=== PATIENT | male | born 1965 | race Caucasian/White ===

== ENCOUNTER 2022-07-24 15:54 | Outpatient (CLI) | payer BC ==
--- NOTE | 2022-07-24 16:22 | SLEEP CARE CONSULTATION ---
Information from patient questionnaire entered by Isa Bennett. I have reviewed and concur with the information entered by Isa Bennett. This document represents the service I personally performed and the decisions made by me, Olga Linares ARNP. History of Present Illness Service Date and Time: 07/24/2022 1554 Reason for Visit: New patient Chief Complaint: reports: Unrefreshed sleep, Frequent awakenings at night Date of Onset: 5YRS Usual bedtime: 9:30 PM Time it takes to fall asleep: 10MIN Snores at night: Yes Observed to quit breathing while asleep: No Sleeps alone due to snoring: No Number of times waking at night: 2 Reasons for waking at night: reports: Bathroom. denies: Choking, Snoring, Gasping for air Toss, Turn, or Twitch while sleeping: No Recalls having dreams: Yes Usually gets out of bed at: 4-5AM Feels refreshed in the morning: No Morning headache: Yes (WITH IN AN HR) Sleepy or fatigued during the day: Yes Ever fallen asleep while driving: No Takes day naps: No Dreams during day naps: No Prior sleep studies: No Additional HPI information: I had the pleasure of seeing BRIGHT BUTTS today regarding the possibility of him having a sleep disorder. His current complaints are unrefreshed sleep and frequent night awakenings. He states his sleep was bad where he would wake up frequently at night and then waking up early and not going back to sleep. He states he does not feel rested usually when waking up. He states lately improved over last 2-3 months because he cut down on caffeine and alcohol. He has been told that he snores. - Parasomnia Symptoms Ever been unable to move upon waking from sleep: No Walks in sleep: No Talks in sleep: Yes Ever acted out dreams in sleep: Yes Ever felt weak in the knees when startled or emotional: No Bothered by creepy, crawly, restless sensations in legs: No Problems with memory or concentration: Yes (both, has ADHD, concentration is a struggle) Subjective Initial [place] Sleepiness Scale score: 9 (07/06/2022) Past Medical History Past Medical History: reports: Attention deficit (ADHD), Other (right carpal tunnel surgery) Social History The patient's occupation is a [employer]. Patient is and lives in . Have you smoked in the past 12 months: No Alcohol use: Yes Alcohol amount and frequency: 3 DRINKS A WEEK Caffeine use: Yes Caffeine amount and frequency: 2, 10 OUNCE COFFEE DAILY BEFORE 8AM Family History Family history of sleep disordered breathing: Yes Family Hx Sleep Apnea: Sibling: Snoring, Sleep apnea - Treated Allergies and Home Medications Known drug allergies: No Drug allergies reviewed: Yes (NKDA) Home medication list reviewed: Yes Allergy and home medication list: Medications: Trazodone 50 mg for sleep Rosuvastatin 5 mg Review of Systems Cardiovascular: denies: high blood pressure Gastrointestinal: denies: heartburn Neurological: denies: headaches Psychiatric: reports: Attention Deficit Hyperactivity. denies: anxiety, depression Ear/Nose/Throat: reports: wisdom teeth removed. denies: tonsillectomy Musculoskeletal: reports: neck pain Physical Exam Vital signs obtained and entered by: ISA Blancas MA Blood Pressure: 100/60 (LEFT ARM) Cuff size: regular Heart Rate: 58 O2 Saturation: 98 Height: 6 ft Weight: 176 lb 3.2 oz Body Mass Index: 23.8 BMI Classification: Normal Neck circumference: 15.5 (inches) Mouth and throat: narrow oropharynx Soft palate: long Hard palate: normal Uvula: normal Uvula visualization: 50% Mallampati Class II Tongue: enlarged in size with teeth carnes on lateral edges Tonsils: small Neck: normal w/o lymphadenopathy or thyromegaly Heart: regular rate and rhythm Lungs: clear bilaterally Impression and Plan 1. Suspected Obstructive Sleep Apnea-Hypopnea Syndrome, as suggested by a history of loud and irregular snoring, morning headache, frequent awakening during the night, unrefreshed sleep, cognitive impairment, and excessive daytime sleepiness. Narrow oropharynx and obesity are common predisposing factors for obstructive sleep apnea-hypopnea syndrome. I recommend proceeding to polysomnography to confirm the diagnosis and to assess severity. If the patient has significant sleep disordered breathing, a manual CPAP titration study will also be performed to find the optimal treatment pressure. I informed the patient of what the sleep studies involve and after some discussion, obtained agreement to proceed. The pathophysiology of obstructive sleep apnea-hypopnea syndrome was discussed with the patient and health risks of cardiovascular and cerebrovascular disease if not treated. Risks of drowsy driving discussed in detail and patient advised to avoid long distance driving and to pullboat engineer at th e first sign of drowsiness. Patient agreed to plan. * Schedule polysomnography * Avoid long distance driving or driving when feeling sleepy. * Avoid alcohol, sedative and muscle relaxant around bedtime. * Maintain a healthy weight. * Review instructions provided by trained office staff on how to prepare for the sleep study. * Return for follow-up after sleep study completed. Counseling Topics: Weight control Visit Type: In Office Time Spent with Patient (minutes): 24 Provider Statement: I spent 100% of the Face to Face Visit with the patient with greater than 50% spent counseling the patient and coordination of care.
[2022-07-24 16:26] VITALS: BP 100/60
== END 2022-07-24 15:55 | disposition home or self-care (01) ==
LOC: SC 15:54
PROVIDERS: ATTEND Nurse Practitioner Family
DX: G47.8 Other sleep disorders (principal); R51.9 Headache, unspecified; R06.83 Snoring
CPT/HCPCS: 99202; 99212

== ENCOUNTER 2022-08-27 14:29 | Outpatient (CLI) | payer BC | END 2022-08-27 14:30 | disposition home or self-care (01) | LOC: SC 14:29 | PROVIDERS: ATTEND Nurse Practitioner Family | DX: G47.33 Obstructive sleep apnea (adult) (pediatric) (principal) | CPT/HCPCS: 95806 ==

== ENCOUNTER 2022-09-02 17:04 | Emergency (ER) | payer BC ==
[2022-09-02 17:24] LABS: BASOPHILS # (AUTO) 0.1 10^3/uL (0.0-0.1); BASOPHILS % (AUTO) 0.9 %; EOSINOPHILS # (AUTO) 0.1 10^3/uL (0.0-0.7); EOSINOPHILS % (AUTO) 1.1 %; HCT - HEMATOCRIT 42.2 % (42.0-52.0); HGB - HEMOGLOBIN 14.1 g/dL (14.0-18.0); LYMPHOCYTES # (AUTO) 1.7 10^3/uL (1.5-3.5); LYMPHOCYTES % (AUTO) 30.3 %; MEAN CORPUSCULAR HEMOGLOBIN 30.9 pg (27.0-31.0); MEAN CORPUSCULAR HGB CONC 33.4 g/dL (32.0-36.0); MEAN CORPUSCULAR VOLUME 92.3 fL (80.0-94.0); MEAN PLATELET VOLUME 9.6 fL (7.4-11.4); MONOCYTES # (AUTO) 0.5 10^3/uL (0.0-1.0); MONOCYTES % (AUTO) 9.1 %; NEUTROPHILS # (AUTO) 3.2 10^3/uL (1.5-6.6); NEUTROPHILS % (AUTO) 58.4 %; PLT - PLATELET COUNT 240 10^3/uL (130-450); RED BLOOD COUNT 4.57 10^6/uL (4.70-6.10); RED CELL DISTRIBUTION WIDTH 12.8 % (12.0-15.0); WHITE BLOOD COUNT 5.5 x10^3/uL (4.8-10.8)
--- NOTE | 2022-09-02 17:27 | ED Physician Documentation ---
History of Present Illness - Stated complaint Stated Complaint: CHEST PX - Chief complaint Chief Complaint: Cardiac - History obtained from History obtained from: Patient - History of Present Illness Timing: How many weeks ago (2) Pain level max: 3 Pain level now: 1 - Additonal information Additional information: Patient is a 57-year-old male who presents to the emergency department complaining of intermittent chest pain for the past 2 weeks. He states that usually last for few minutes at a time, describes it as left-sided and like a "low pressure". He states he usually comes and goes. He states it was improving with exertion, being on a treadmill or exercise bike, but states that today the pain worsened when he was on the exercise bike. He states he had a normal cardiac stress test 4 years ago in [place]. He states that he has currently had the chest pain for the past several hours, it has been constant. No change with breathing, walking. He does take a statin at home but does not have any cardiac history. No fevers. No chills. No changes with movement or palpation. Review of Systems Constitutional: denies: Fever, Chills Throat: denies: Sore throat Cardiac: denies: Palpitations Respiratory: denies: Cough GI: denies: Nausea, Vomiting, Diarrhea Skin: denies: Rash Musculoskeletal: denies: Neck pain, Back pain Neurologic: denies: Headache PD PAST MEDICAL HISTORY - Past Medical History Past Medical History: Yes Cardiovascular: High cholesterol - Past Surgical History Past Surgical History: No - Present Medications Home Medications: Ambulatory Orders Medication Instructions Recorded Confirmed Rosuvastatin Calcium [Crestor] See Rx Instructions .ROUTE .COMPLEX 07/24/22 07/24/22 traZODone [Desyrel] See Rx Instructions .ROUTE .COMPLEX 07/24/22 07/24/22 - Allergies Allergies/Adverse Reactions: Allergies Allergy/AdvReac Type Severity Reaction Status Date / Time No Known Drug Allergies Allergy Verified 09/02/22 17:09 - Living Situation Living Situation: reports: With family Living Arrangement: reports: At home - Social History Does the pt smoke?: No Does the pt have substance abuse?: No - Family History Family history: reports: Non contributory PD ED PE NORMAL - Vitals Vital signs reviewed: Yes - General General: Alert and oriented X 3, No acute distress - HEENT HEENT: Moist mucous membranes - Neck Neck: Supple, no meningeal sign - Cardiac Cardiac: RRR, No murmur, Strong equal pulses - Respiratory Respiratory: No respiratory distress, Clear bilaterally - Derm Derm: Warm and dry - Neuro Neuro: Alert and oriented X 3 - Psych Psych: Normal mood, Normal affect Results - Vitals Vitals: Oxygen O2 Source Room air - EKG (time done) 1728 Rate: Rate (enter#) (65) Rhythm: NSR, Other (PVC) Edgar: Normal Intervals: Normal CO QRS: Normal Ischemia: Normal ST segments - Labs Labs: Laboratory Tests 09/02/22 09/02/22 09/02/22 17:16 17:16 17:16 WBC 5.5 RBC 4.57 L Hgb 14.1 Hct 42.2 MCV 92.3 MCH 30.9 MCHC 33.4 RDW 12.8 Plt Count 240 MPV 9.6 Neut # (Auto) 3.2 Lymph # (Auto) 1.7 Stafford # (Auto) 0.5 Eos # (Auto) 0.1 Baso # (Auto) 0.1 Absolute Nucleated RBC 0.00 Nucleated RBC % 0.0 Sodium 138 Potassium 3.6 Chloride 103 Carbon Dioxide 28 Anion Gap 7.0 BUN 15 Creatinine 0.8 Estimated GFR (MDRD) 100 Glucose 87 Calcium 9.3 Total Bilirubin 0.8 AST 23 ALT 23 Alkaline Phosphatase 54 Troponin I High Sens 5.3 Total Protein 7.1 Albumin 4.3 Globulin 2.8 Albumin/Globulin Ratio 1.5 Lipase 31 PD Medical Decision Making - ED course Complexity details: reviewed results, re-evaluated patient, considered differential (No ST elevation AK, no aortic dissection, no PE, no tension pneumothorax, no aortic aneurysm), d/w patient ED course: No acute findings on EKG, chest x-ray or laboratory testing. CBC is normal. CMP and high-sensitivity troponin are negative as well. He states that he has had a stress test that was negative in the past several years. Recommend that he have another stress test performed. Until that time recommend that he start on a baby aspirin daily. Stress testing is not available in this hospital. Patient is very well-appearing, nontoxic. Afebrile. No evidence of PE, acute coronary syndrome. No tachycardia. No calf tenderness or swelling. Patient counseled regarding signs and symptoms for which I believe and urgent re- evaluation would be necessary. Patient with good understanding of and agreement to plan and is comfortable going home at this time This document was made in part using voice recognition software. While efforts are made to proofread this document, sound alike and grammatical errors may occur. Departure - Departure Disposition: 01 Home, Self Care Clinical Impression: Chest pain Qualifiers: Chest pain type: unspecified Qualified Code(s): R07.9 - Chest pain, unspecified Condition: Good Instructions: ED Chest Pain Atypical Unkn Cause Follow-Up: OMER HENSLEY MD [Primary Care Provider] - Tomorrow Comments: Please start on a baby aspirin daily. Please contact your doctor tomorrow to schedule a cardiac stress test. [facility] in [place], [facility] in [place] or [facility] in [place] can all perform the cardiac stress test and have cardiology programs. If your symptoms recur or worsen, please return for repeat evaluation. If you develop any pain during exertion, please stop what you are doing. I would minimize exertion until your stress test is complete. Discharge Date/Time: 09/02/22 18:50
[2022-09-02 17:36] LABS: ALBUMIN 4.3 g/dL (3.2-5.5); ALBUMIN/GLOBULIN RATIO 1.5 (1.0-2.2); BILIRUBIN,TOTAL 0.8 mg/dL (0.2-1.0); CALCIUM 9.3 mg/dL (8.5-10.3); CREATININE 0.8 mg/dL (0.6-1.2); POTASSIUM 3.6 mmol/L (3.5-5.0); TOTAL PROTEIN 7.1 g/dL (6.7-8.2)
--- NOTE | 2022-09-02 17:57 | XRAY Report ---
PROCEDURE: Chest 1 View X-Ray INDICATIONS: Chest Pain TECHNIQUE: One view of the chest was acquired. COMPARISON: None. FINDINGS: Surgical changes and devices: None. Lungs and pleura: No pleural effusions or pneumothorax. Lungs are clear. Mediastinum: Mediastinal contours appear normal. Heart size is normal. Bones and chest wall: No suspicious bony lesions. Overlying soft tissues appear unremarkable. IMPRESSION: Normal portable chest. Reviewed by: Scott Sharp MD on 09/02/2022 4:55 PM [facility] Approved by: Scott Sharp MD on 09/02/2022 4:55 PM [facility] Station ID: [id number]
[2022-09-02 18:50] VITALS: BP 129/87
== END 2022-09-02 18:50 | disposition home or self-care (01) ==
LOC: ED 17:04
DX: R07.9 Chest pain, unspecified (principal)
CPT/HCPCS: 36415; 80053; 83690; 84484; 85025; 93005; 99284